=== PATIENT | female | born 1960 | race Caucasian/White ===

== ENCOUNTER 2017-02-25 19:58 | Emergency (ER) | payer OTHER ==
[~2017-02-25] VITALS: Ht 152.4 cm; Wt 67.7 kg
[2017-02-25 20:00] VITALS: BP 142/95; PULSE 85; RESP 16
--- NOTE | 2017-02-25 20:31 | ED.REPORT ---
HPI- Female Date of Service February 25, 2017 ED Provider: Alethea VigilO. A 56 year old female with a history of frequent UTIs and breast cancer in remission presents to the ED with lower abdominal pain onset several days ago. The pain is described as "pressure." The patient also reports nausea and urinary frequency. She denies dysuria or other symptoms. At onset the patient was seen at Urgent Care and placed on Cipro for a UTI, which she has almost finished with no relief. Nursing Notes Stated Complaint: UTI Chief Complaint: Female Abdominal Pain Nursing Notes Reviewed: Yes Allergies: Coded Allergies: acetaminophen (Unverified Allergy, Mild, 02/25/17) hydrocodone (Unverified Allergy, Mild, 02/25/17) General Time Seen by MD: 20:31 Chief Complaint Abdominal pain... Hx Obtained From: Patient Arrived By: Walk-in Sudden in Onset?: No Onset Occurred: 5 days ago ("Several days ago") Symptom Duration: Since onset Location: : Abdomen lower Quality: Painful, Pressure Severity: Current: Moderate Severity: Maximum: Moderate Pertinent Negative: Relieved by nothing Related History: Reports: Cancer Recent Healthcare: Recent doctor visit Past Medical History Past Medical History Breast cancer in remission Frequent UTI Past Surgical History Right breast lumpectomy Reports: (x3) Smoking History Unknown if Ever Smoker Ambulatory Status Independent Review of Systems Constitutional: Denies: Fever GI: Reports: Abdominal pain (Lower), Nausea, Denies: Diarrhea, Vomiting Female: Reports: Urinary frequency, Denies: Dysuria Complete sys rev & neg: except as marked. Respiratory: Denies: Non-productive cough, Shortness of breath Physical Exam Initial Vital Signs Vital Signs (First) Date Time Temp Pulse Resp B/P Pulse Ox O2 Delivery O2 Flow Rate FiO2 02/25/17 20:00 37.3 85 16 142/95 Room Air 02/25/17 22:22 100 Initial VS: Reviewed Head / Eyes: Atraumatic, Normocephalic ENT: Conjunctiva normal, No scleral icterus Neck: Supple, Full range of motion Respiratory: Breath sounds normal, Clear to auscultation, No respiratory distress Cardiovascular: Regular rate & rhythm, Heart sounds normal Skin: Warm, Dry, No cyanosis Neurologic: Alert, Oriented, Nonfocal Psychiatric: Mood/affect normal, Behavior normal, Normal thought content Abdomen: Soft Tenderness/Guarding/Rebound: Positive: Tender suprapubic Interpretation & Diagnostics Lab Results Interpretation Test 02/25/17 20:25 Urine Color Yellow (YELLOW) Urine Appearance Clear (CLEAR,HAZY) Urine pH 5.5 (5.0-8.0) Urine Specific Wesley 1.015 (1.003-1.035) Urine Protein Negativemg/dL (NEG,TRACE) Urine Glucose (UA) Negativemg/dL (NEGATIVE) Urine Ketones Negativemg/dL (NEGATIVE) Urine Occult Blood Negative (NEGATIVE) Urine Nitrite Negative (NEGATIVE) Urine Bilirubin Negative (NEGATIVE) Urine Urobilinogen Normalmg/dL (NORMAL) Urine Leukocyte Esterase Negative (NEGATIVE) Urine RBC 0-2/hpf (0-2) Urine WBC 0-5/hpf (0-5) Urine Epithelial Cells Few/hpf (NONE-MOD) Urine Crystals None seen (NONE SEEN) Urine Bacteria None/hpf (NONE-FEW) Urine Hyaline Casts None/lpf (NONE) Urine Granular Casts None seen (NONE SEEN) Urine Waxy Casts None seen (NONE SEEN) Urine Red Blood Cell Casts None seen (NONE SEEN) Urine White Blood Cell Casts None seen (NONE SEEN) Urine Mucus None seen (None Seen) Urine Trichomonas None seen (NONE SEEN) Urine Yeast None (NONE SEEN) Urinalysis Comment None Urine Culture Reflexed Not indicated CT Abd / Pelvis Interpretation Study type: Abdominal CT no contrast Interpretation / Wet Read by: Interpret - Radiologist NL CT Abdomen Findings: No acute disease Re-Eval/Medical Decision Med Decision/Clinical Course Nguyen has flank pain suprapubic pain and urinary urgency. The CT scan read and pelvis was reassuring. No kidney stones. No obstructive uropathy. No mass pushing on her bladder. Urine is underwhelming however she still symptomatic. We will culture it. I think that we have better coverage with Keflex were placed her on that pending culture. Short course of opiates provided for pain. Re-Evaluation/Progress : Time of Eval: 21:52 Patient Status: Condition improved Re-Evaluation/Progress Note: Discussed with patient lab and CT results, diagnosis, and plan for discharge. Follow-up and return to the ER instructions given. Patient agrees with plan for care and all questions were addressed. Counseled Regarding: Diagnosis, Lab results, Need for follow-up, When/why to return to ED Discharge & Departure Impression: Primary Impression: UTI (urinary tract infection) Urinary tract infection type: acute cystitis Hematuria presence: without hematuria Qualified Code: N30.00 - Acute cystitis without hematuria Additional Impression: Constipation Constipation type: unspecified constipation type Qualified Code: K59.00 - Constipation, unspecified Disposition: Home Discharge Condition All VS Reviewed: Yes Condition: Improved Patient Instructions: Constipation (ED), Urinary Tract Infection in Women (ED) Additional Instructions: Thank you for entrusting us with your care. Your CT scan was reassuring for any serious illness. Please take Keflex three times daily for five days, as prescribed. Follow-up with the urine culture. 1-2 Percocet every six hours as needed for pain. Do not drink alcohol, drive, or consume acetaminophen while taking Percocet. Increase the natural fiber in your diet. Call your primary care provider on Monday for a follow-up appointment. Return to the ER with any new or worsening symptoms. Referrals: Sotero Juan MD (PCP) [place] Attestation Portions of this note were transcribed by Mini Rodrigez. I, Dr. Cuellar, personally performed the history, physical exam, and medical decision-making; I reviewed and confirmed the accuracy of the information in the transcribed note. Signed by: Araceli Simeon, 02/25/2017, 23:35 copies to: Sotero Juan MD, Todd P DO February 25, 2017 20:31 MINI RODRIGEZ February 25, 2017 20:55
[2017-02-25 20:43] LABS: APPEARANCE,URINE CLEAR (CLEAR,HAZY); COLOR,URINE YELLOW (YELLOW); OCCULT BLOOD,URINE NEGATIVE (NEGATIVE); PH,URINE 5.5 (5.0-8.0); UROBILINOGEN,URINE NORMAL (NORMAL)
--- NOTE | 2017-02-25 21:32 | DRSVH ---
PROCEDURE: CT KUB ([id number]) INDICATIONS: left flank and suprapubic pain, TECHNIQUE: Noncontrast 5 mm thick sections acquired from the diaphragms to the symphysis. 5 mm thick coronal an d sagittal reformats were then performed. For radiation dose reduction, the following was used: aut omated exposure control, adjustment of mA and/or kV according to patient size. COMPARISON: None. FINDINGS: Image quality: Excellent. Lung bases: Lung bases are clear. Heart size is normal. Urinary system: Both kidneys are normal in size. No kidney stones. No hydronephrosis or perinephri c fat stranding. Both ureters appear non-dilated throughout their expected courses. Bladder wall th ickness is normal; no calcified bladder stones. Other solid organs: Liver and spleen are normal in size. Gallbladder is unremarkable. Pancreas is normal in contours. No adrenal nodules. Peritoneum and bowel: Unenhanced bowel loops demonstrate normal wall thickness and caliber. No free fluid or air. Moderate stool. No obstruction. Nodes and vessels: No retroperitoneal or mesenteric adenopathy by size criteria. Aorta and inferior vena cava are normal in caliber. Abdominal wall: No ventral hernias. Pelvis: No free pelvic fluid. No inguinal hernias or adenopathy. Bones: No suspicious bony lesions. No vertebral body compression fractures. IMPRESSION: 1. No nephro or ureterolithiasis. No bladder calculi. 2. Moderate stool suggestive of constipation. No obstruction. Dictated by: Tamika Dickinson M.D. on 02/25/2017 at 21:28 Approved by: Tamika Dickinson M.D. on 02/25/2017 at 21:30
[2017-02-25] MEDS ORDERED: _oxyCODONE/APAP 5-325 mg Tablet PO PRN (21:55)
[2017-02-25 22:22] VITALS: BP 133/88; PULSE 83; RESP 16; O2SAT 100
== END 2017-02-25 22:23 | disposition home or self-care (01) ==
LOC: SED 19:58
DX: N30.00 Acute cystitis without hematuria (principal); K59.00 Constipation, unspecified; Z88.5 Allergy status to narcotic agent; Z88.8 Allergy status to other drugs, medicaments and biological substances